=== PATIENT | male | born 1995 | race American Indian/Alaskan Native ===

== ENCOUNTER 2016-08-17 09:41 | Emergency (ER) | payer OTHER ==
[2016-08-17 10:14] LABS: Basophils % (Auto) 0.9 % (0.0-1.8); Eosinophils % (Auto) 2.5 % (0.0-4.3); Hematocrit 42.4 % (35.5-45.6); Hemoglobin 13.9 gm/dl (11.8-15.2); Mean Corpuscular HGB Conc 33 % (32-34); Mean Corpuscular Hemoglobin 33 pg (28-32); Mean Corpuscular Volume 99 fl (84-94); Platelet Count 295 K/mm3 (140-440); Red Blood Count 4.27 M/mm3 (3.65-5.03); Red Cell Distribution Width 13.2 % (13.2-15.2); White Blood Count 7.6 K/mm3 (4.5-11.0)
[2016-08-17 10:32] LABS: Anion Gap 15 mmol/L; BUN/Creatinine Ratio 11.81; Blood Urea Nitrogen 13 mg/dL (9-20); Calcium 9.5 mg/dL (8.4-10.2); Carbon Dioxide 28 mmol/L (22-30); Chloride 103.3 mmol/L (98-107); Glucose 94 mg/dL (75-100); Potassium 4.1 mmol/L (3.6-5.0); Sodium 142 mmol/L (137-145)
[2016-08-17 12:01] LABS: Urine Drugs of Abuse Note Disclamer
[2016-08-17 12:25] LABS: Bilirubin,Urine NEG (Negative); Blood,Urine NEG (Negative); Ketones,Urine TR mg/dL (Negative); Leukocyte Esterase,Urine NEG (Negative); Mucus,Urine FEW /HPF; Nitrite,Urine NEG (Negative)
--- NOTE | 2016-08-18 02:06 | Emergency Department Report ---
ED Psych HPI - General Chief Complaint: Psych Stated Complaint: MH Time Seen by Provider: 08/18/16 02:00 Source: patient, EMS (ems notes not available at time of chart dictation), RN notes reviewed Mode of arrival: Ambulatory - History of Present Illness Initial Comments: This is a 21-year-old male. He is previously unknown to me. Has a past medical history of bipolar disorder, schizophrenia, cocaine abuse. The patient is brought to the hospital for psychiatric evaluation. The patient indicates "it's 50-50 that IM going to hurt someone." The patient cannot describe exacerbating or relieving factors. The patient denies headache, neck pain, chest pain, abdominal pain, shortness of breath. He requests to eat. MD Complaint: other -: unknown Associated Psychiatric Symptoms: homicidal ideation History of same: Yes Quality: other (as per history of present illness) Worsens With: drug use Context: recent drug abuse (patient is consuming cocaine) Associated Symptoms: denies: confusion, headache, shortness of breath, nausea, vomiting, syncope, insomnia - Related Data Allergies Allergy/AdvReac Type Severity Reaction Status Date / Time No Known Allergies Allergy Unverified 08/17/16 09:57 ED Review of Systems ROS: Stated complaint: MH Other details as noted in HPI Constitutional: denies: fever Eyes: denies: vision change ENT: denies: epistaxis Respiratory: denies: cough Cardiovascular: denies: chest pain Gastrointestinal: denies: abdominal pain Genitourinary: as per HPI. denies: dysuria Musculoskeletal: denies: back pain Skin: denies: lesions Neurological: denies: headache Psychiatric: as per HPI ED Past Medical Hx - Past Medical History Previous Medical History?: Yes Hx Psychiatric Treatment: Yes (bipolar, schizophrenia) - Surgical History Past Surgical History?: No - Social History Smoking Status: Current Every Day Smoker Substance Use Type: Cocaine, Marijuana ED Physical Exam - General Limitations: Other (patient is disorganized. The patient is a poor historian) General appearance: alert, in no apparent distress - Head Head exam: Present: atraumatic, normocephalic - Eye Eye exam: Present: normal appearance, EOMI - ENT ENT exam: Present: normal exam, normal orophraynx, mucous membranes moist - Neck Neck exam: Present: normal inspection, full ROM. Absent: tenderness, meningismus - Respiratory Respiratory exam: Present: normal lung sounds bilaterally. Absent: respiratory distress, wheezes, rales, rhonchi, stridor, chest wall tenderness, accessory muscle use, decreased breath sounds, prolonged expiratory - Cardiovascular Cardiovascular Exam: Present: regular rate, normal rhythm, normal heart sounds. Absent: bradycardia, tachycardia, irregular rhythm, systolic murmur, diastolic murmur, rubs, gallop - GI/Abdominal GI/Abdominal exam: Present: soft, normal bowel sounds. Absent: distended, tenderness, guarding, rebound, rigid, pulsatile mass - Rectal Rectal exam: Present: deferred - Extremities Exam Extremities exam: Present: normal inspection, full ROM, normal capillary refill. Absent: tenderness, pedal edema, joint swelling, calf tenderness - Back Exam Back exam: Present: normal inspection, full ROM. Absent: tenderness, CVA tenderness (R), CVA tenderness (L), muscle spasm, paraspinal tenderness, vertebral tenderness - Neurological Exam Neurological exam: Present: alert, oriented X3, normal gait, other (Extraocular movements intact. Tongue midline. No facial droop. Facial sensation intact to light touch in the V1, V2, V3 distribution bilaterally. 5 and 5 strength in 4 extremities.. Sensation is intact to light touch in 4 extremities.). Absent : motor sensory deficit - Psychiatric Psychiatric exam: Present: flat affect, other (patient disorganized. Making comments about hurting people.) - Skin Skin exam: Present: warm, dry, intact, normal color. Absent: rash ED Course Vital Signs 08/17/16 09:57 Temperature 97.6 F Pulse Rate 67 Respiratory 18 Rate Blood Pressure 114/71 O2 Sat by Pulse 100 Oximetry - Reevaluation(s) Reevaluation #1: 08/18/16 04:14 differential diagnosis: Mood disorder, homicidality, suicidality , cocaine abuse, polysubstance abuse, decompensated psychiatric disease, medical clearance for psychiatric placement Assessment and plan: 21-year-old male who is making passive remarks about hurting people. He is afebrile with reassuring vital signs. His physical exam is unremarkable. He has a GCS of 15, with an NIH score of 0. His laboratory studies are reviewed, and they are unremarkable. The patient is placed on a 1013. At this point in time, I see no immediate medical contraindication to psychiatric admission/evaluation/consultations/placement. The crisis team is informed. ED Medical Decision Making - Lab Data Result diagrams: 08/17/16 10:03 08/17/16 10:03 Vital Signs 08/17/16 09:57 Temperature 97.6 F Pulse Rate 67 Respiratory 18 Rate Blood Pressure 114/71 O2 Sat by Pulse 100 Oximetry Lab Results 08/17/16 08/17/16 08/17/16 Range/Units 10:03 10:03 10:03 WBC 7.6 (4.5-11.0) K/mm3 RBC 4.27 (3.65-5.03) M/mm3 Hgb 13.9 (11.8-15.2) gm/dl Hct 42.4 (35.5-45.6) % MCV 99 H (84-94) fl MCH 33 H (28-32) pg MCHC 33 (32-34) % RDW 13.2 (13.2-15.2) % Plt Count 295 (140-440) K/mm3 Lymph % (Auto) 25.8 (13.4-35.0) % [place] % (Auto) 10.6 H (0.0-7.3) % Eos % (Auto) 2.5 (0.0-4.3) % Baso % (Auto) 0.9 (0.0-1.8) % Lymph # 2.0 (1.2-5.4) K/mm3 [place] # 0.8 (0.0-0.8) K/mm3 Eos # 0.2 (0.0-0.4) K/mm3 Baso # 0.1 (0.0-0.1) K/mm3 Seg Neutrophils % 60.2 (40.0-70.0) % Seg Neutrophils # 4.6 (1.8-7.7) K/mm3 Sodium 142 (137-145) mmol/L Potassium 4.1 (3.6-5.0) mmol/L Chloride 103.3 (98-107) mmol/L Carbon Dioxide 28 (22-30) mmol/L Anion Gap 15 mmol/L BUN 13 (9-20) mg/dL Creatinine 1.1 (0.8-1.5) mg/dL Estimated GFR > 60 ml/min BUN/Creatinine Ratio 11.81 % Glucose 94 (75-100) mg/dL Calcium 9.5 (8.4-10.2) mg/dL Total Creatine Kinase (55-170) units/L Urine Color (Yellow) Urine Turbidity (Clear) Urine pH (5.0-7.0) Ur Specific [place] (1.003-1.030) Urine Protein (Negative) mg/dL Urine Glucose (UA) (Negative) mg/dL Urine Ketones (Negative) mg/dL Urine Blood (Negative) Urine Nitrite (Negative) Urine Bilirubin (Negative) Urine Urobilinogen (<2.0) mg/dL Ur Leukocyte Esterase (Negative) Urine WBC (Auto) (0.0-6.0) /HPF Urine RBC (Auto) (0.0-6.0) /HPF U Epithel Cells (Auto) (0-13.0) /HPF Urine Mucus /HPF Salicylates (2.8-20.0) mg/dL Urine Opiates Screen Urine Methadone Screen Acetaminophen (10.0-30.0) ug/mL Ur Barbiturates Screen Ur Phencyclidine Scrn Ur Amphetamines Screen U Benzodiazepines Scrn Urine Cocaine Screen U Marijuana (THC) Screen Drugs of Abuse Note Plasma/Serum Alcohol < 0.01 (0-0.07) gm% 08/17/16 08/17/16 08/18/16 Range/Units 11:26 11:26 02:06 WBC (4.5-11.0) K/mm3 RBC (3.65-5.03) M/mm3 Hgb (11.8-15.2) gm/dl Hct (35.5-45.6) % MCV (84-94) fl MCH (28-32) pg MCHC (32-34) % RDW (13.2-15.2) % Plt Count (140-440) K/mm3 Lymph % (Auto) (13.4-35.0) % [place] % (Auto) (0.0-7.3) % Eos % (Auto) (0.0-4.3) % Baso % (Auto) (0.0-1.8) % Lymph # (1.2-5.4) K/mm3 [place] # (0.0-0.8) K/mm3 Eos # (0.0-0.4) K/mm3 Baso # (0.0-0.1) K/mm3 Seg Neutrophils % (40.0-70.0) % Seg Neutrophils # (1.8-7.7) K/mm3 Sodium (137-145) mmol/L Potassium (3.6-5.0) mmol/L Chloride (98-107) mmol/L Carbon Dioxide (22-30) mmol/L Anion Gap mmol/L BUN (9-20) mg/dL Creatinine (0.8-1.5) mg/dL Estimated GFR ml/min BUN/Creatinine Ratio % Glucose (75-100) mg/dL Calcium (8.4-10.2) mg/dL Total Creatine Kinase 320 H (55-170) units/L Urine Color Yellow (Yellow) Urine Turbidity Clear (Clear) Urine pH 6.0 (5.0-7.0) Ur Specific [place] 1.030 (1.003-1.030) Urine Protein 30 mg/dl (Negative) mg/dL Urine Glucose (UA) Neg (Negative) mg/dL Urine Ketones Tr (Negative) mg/dL Urine Blood Neg (Negative) Urine Nitrite Neg (Negative) Urine Bilirubin Neg (Negative) Urine Urobilinogen 4.0 (<2.0) mg/dL Ur Leukocyte Esterase Neg (Negative) Urine WBC (Auto) 1.0 (0.0-6.0) /HPF Urine RBC (Auto) 5.0 (0.0-6.0) /HPF U Epithel Cells (Auto) 1.0 (0-13.0) /HPF Urine Mucus Few /HPF Salicylates (2.8-20.0) mg/dL Urine Opiates Screen Presumptive negative Urine Methadone Screen Presumptive negative Acetaminophen (10.0-30.0) ug/mL Ur Barbiturates Screen Presumptive negative Ur Phencyclidine Scrn Presumptive negative Ur Amphetamines Screen Presumptive positive U Benzodiazepines Scrn Presumptive negative Urine Cocaine Screen Presumptive positive U Marijuana (THC) Screen Presumptive positive Drugs of Abuse Note Disclamer Plasma/Serum Alcohol (0-0.07) gm% 08/18/16 08/18/16 Range/Units 02:06 02:06 WBC (4.5-11.0) K/mm3 RBC (3.65-5.03) M/mm3 Hgb (11.8-15.2) gm/dl Hct (35.5-45.6) % MCV (84-94) fl MCH (28-32) pg MCHC (32-34) % RDW (13.2-15.2) % Plt Count (140-440) K/mm3 Lymph % (Auto) (13.4-35.0) % [place] % (Auto) (0.0-7.3) % Eos % (Auto) (0.0-4.3) % Baso % (Auto) (0.0-1.8) % Lymph # (1.2-5.4) K/mm3 [place] # (0.0-0.8) K/mm3 Eos # (0.0-0.4) K/mm3 Baso # (0.0-0.1) K/mm3 Seg Neutrophils % (40.0-70.0) % Seg Neutrophils # (1.8-7.7) K/mm3 Sodium (137-145) mmol/L Potassium (3.6-5.0) mmol/L Chloride (98-107) mmol/L Carbon Dioxide (22-30) mmol/L Anion Gap mmol/L BUN (9-20) mg/dL Creatinine (0.8-1.5) mg/dL Estimated GFR ml/min BUN/Creatinine Ratio % Glucose (75-100) mg/dL Calcium (8.4-10.2) mg/dL Total Creatine Kinase (55-170) units/L Urine Color (Yellow) Urine Turbidity (Clear) Urine pH (5.0-7.0) Ur Specific [place] (1.003-1.030) Urine Protein (Negative) mg/dL Urine Glucose (UA) (Negative) mg/dL Urine Ketones (Negative) mg/dL Urine Blood (Negative) Urine Nitrite (Negative) Urine Bilirubin (Negative) Urine Urobilinogen (<2.0) mg/dL Ur Leukocyte Esterase (Negative) Urine WBC (Auto) (0.0-6.0) /HPF Urine RBC (Auto) (0.0-6.0) /HPF U Epithel Cells (Auto) (0-13.0) /HPF Urine Mucus /HPF Salicylates < 0.3 L (2.8-20.0) mg/dL Urine Opiates Screen Urine Methadone Screen Acetaminophen < 15.0 (10.0-30.0) ug/mL Ur Barbiturates Screen Ur Phencyclidine Scrn Ur Amphetamines Screen U Benzodiazepines Scrn Urine Cocaine Screen U Marijuana (THC) Screen Drugs of Abuse Note Plasma/Serum Alcohol (0-0.07) gm% Critical care attestation.: If time is entered above; I have spent that time in minutes in the direct care of this critically ill patient, excluding procedure time. ED Disposition Clinical Impression: Mood disorder Disposition: DC/TX PSY HOSP/PSY UNIT Is pt being admited?: No Does the pt Need Aspirin: No Condition: Stable Referrals: PRIMARY CARE, [Primary Care Provider] - 3-5 Days
[2016-08-18] MEDS ORDERED: ATIVAN IM PRN (02:11)
--- NOTE | 2016-08-18 14:54 | Consultation ---
History of Present Illness - Reason for Consult Consult date: 08/18/16 Reason for consult: Mental Health Evaluation Requesting physician: MYKEL DORADO - Chief Complaint Chief complaint: "I am in need of help" - History of Present Psychiatric Illness This is a 21-year-old male with past psy history of bipolar disorder, schizophrenia, and cocaine abuse. Today patient is calm and cooperative during the assessment. He stated that he is suicidal and homicidal. He stated that he would use a knife or a gun to kill himself. Also, he stated that he would hurt a person that's a friend of his sister. Patient was elusive about his HI's and this particular friend. He stated all his "anger" come from not living the life he want. He admit to being sad, hopeless, and helpless. He stated that he have no reason to want to live. Patient admitted to self medicated with alcohol and recreational drugs. He stated that he been to multiple inpatient psy settings in the past. He stated that he last took Celexa, Vyvanse, and Risperdal months ago. He stated that he experience voices intermittently, but can't make out what they be telling him. He stated that his sleep has been erratic lately, but his appetite is "okay." He stated that he have not slept in 2 days (drug binge) . Patient stated that he would like to go back to school and get his GED. Medications and Allergies Allergies Allergy/AdvReac Type Severity Reaction Status Date / Time No Known Allergies Allergy Unverified 08/17/16 09:57 Active Meds: Active Medications Lorazepam (Ativan) 2 mg IM Q4HR PRN PRN Reason: Agitation Mental Status Exam - Vital signs Last Vital Signs Temp 97.5 F L 08/18/16 08:00 Pulse 64 08/18/16 08:00 Resp 18 08/18/16 08:01 BP 106/61 08/18/16 08:00 Pulse Ox 99 08/18/16 08:01 - Exam Narrative exam: ROS: (+) depression, (+) psychosis MSE: Appearance: calm, cooperative Behavior: poor eye contact Speech: regular rate and tone Mood: "depressed" Affect: congruent to mood Thought Process: circumstantial Thought Content: denies SI/HI's and VH's Motor Activity: lying in bed Cognition: a/ox 3 Insight: limited Judgment: limited Results Result Diagrams: 08/17/16 10:03 08/17/16 10:03 Abnormal lab results 08/18/16 08/18/16 Range/Units 02:06 02:06 Total Creatine Kinase 320 H (55-170) units/L Salicylates < 0.3 L (2.8-20.0) mg/dL All other labs normal. Assessment and Plan Assessment and plan: Impression: MDD severe type with psychotic features, Cocaine/Cannabis Use DO. This is a 21-year-old male with past psy history of bipolar disorder, schizophrenia, and cocaine abuse. Today patient is calm and cooperative during the assessment. He stated that he is suicidal and homicidal. He stated that he would use a knife or a gun to kill him self. Also, he stated that he would hurt a person that's a friend of his sister. Patient was elusive about his HI's about this particular friend. He stated all his "anger" come from not living the life he want. He denies VH's. Patient is homeless. DD: R/O Bipolar, Schizoaffective DO, Substance induced psychosis Recommendation/Plan: Continue 1013 with placement to inpatient psy services. Start Risperdal 1 mg PO HS for psychotic symptoms, Cogentin 0.5 mg PO HS for EPS prevention, and Celexa 10 mg PO for depression. Discussed possible metabolic side effects of Risperdal and suicidality/medication induced christine reference Celexa and Benadryl 25 mg PO HS PRN for sleep.
[2016-08-18] MEDS ORDERED: BENADRYL PO PRN (16:48)
[2016-08-18] MEDS: celeXA PO SCH (18:18)
[2016-08-18] MEDS: COGENTIN PO SCH (21:55)
[2016-08-18] MEDS: RisperDAL PO SCH (21:55)
[2016-08-19] MEDS: celeXA PO SCH (10:14)
--- NOTE | 2016-08-19 17:34 | Progress Note ---
Subjective - Reason for Consult Consult date: 08/19/16 Reason for consult: psychiatric follow up - Chief Complaint Chief complaint: "I'm down and depressed" This is a 21-year-old male with past psy history of bipolar disorder, schizophrenia, and cocaine abuse. Today patient is calm and cooperative during the assessment. He stated that he is suicidal without a plan. Yesterday he stated that he would use a knife or a gun to kill himself. Yesterday, per the record, he stated that he would hurt a person that's a friend of his sister. He admits to being sad, hopeless, and helpless. Patient reports using alcohol and recreational drugs. He has been sleeping most of his time since arrival to the ER. Appetite is decreased. Mental Status Exam - Vital signs Last Vital Signs Temp 97.7 F 08/19/16 07:38 Pulse 85 08/19/16 07:38 Resp 16 08/19/16 09:55 BP 127/89 08/19/16 07:38 Pulse Ox 100 08/19/16 07:38 - Exam Narrative exam: ROS: (+) depression, (+) psychosis MSE: Appearance: calm, cooperative Behavior: poor eye contact Speech: regular rate and tone Mood: "depressed" Affect: congruent to mood Thought Process: circumstantial Thought Content: reports SI, no plan. no current HI. no AVH Motor Activity: lying in bed Cognition: a/ox 3 Insight: limited Judgment: limited Assessment and Plan Impression: MDD severe type with psychotic features Cocaine/Cannabis Use DO. DD: R/O Bipolar, Schizoaffective DO, Substance induced psychosis Recommendation/Plan: Continue 1013 with placement to inpatient psy services. Continue Risperdal 1 mg PO HS for psychotic symptoms Cogentin 0.5 mg PO HS for EPS prevention Celexa 10 mg PO for depression. Benadryl 25 mg PO HS PRN for sleep.
[2016-08-19] MEDS: COGENTIN PO SCH (22:33)
[2016-08-19] MEDS: RisperDAL PO SCH (22:33)
--- NOTE | 2016-08-20 10:58 | Progress Note ---
Subjective - Reason for Consult Consult date: 08/20/16 Reason for consult: Psychiatry Follow-up - Chief Complaint Chief complaint: "I am okay today" This is a 21-year-old male with past psy history of bipolar disorder, schizophrenia, and cocaine abuse. Today patient is calm and cooperative during the assessment. He stated that he is not suicidal today, but now he want to harm his sister's boyfriend. He could not tell why he want to harm this person. He stated that he spoke with his dad yesterday and he felt better after the conversation. He denies SI's, AVH's, sleep disturbance, and a poor appetite. He stated that his appetite was decreased yesterday. Mental Status Exam - Vital signs Last Vital Signs Temp 97.9 F 08/19/16 20:00 Pulse 67 08/19/16 20:00 Resp 18 08/19/16 20:00 BP 114/65 08/19/16 20:00 Pulse Ox 100 08/19/16 20:00 - Exam Narrative exam: MSE: Appearance: calm, cooperative Behavior: good eye contact Speech: regular rate and tone Mood: "okay" Affect: congruent to mood Thought Process: circumstantial Thought Content: denies SI's and AVH's Motor Activity: lying in bed Cognition: a/ox 3 Insight: limited Judgment: limited Assessment and Plan Impression: MDD severe type with psychotic features, Cocaine/Cannabis Use DO. He denies VH's. This is a 21-year-old male with past psy history of bipolar disorder, schizophrenia, and cocaine abuse. Today patient is calm and cooperative during the assessment. He stated that he is not suicidal today, but now he want to harm his sister boyfriend. He could not tell why he want to harm this person. He stated that he spoke with his dad yesterday and he felt better. He denies SI's, AVH's, sleep disturbance, and a poor appetite. Patient is homeless. Recommendation/Plan: Continue 1013 with placement to inpatient psy services. Start Risperdal 1 mg PO HS for psychotic symptoms, Cogentin 0.5 mg PO HS for EPS prevention, and Celexa 10 mg PO for depression. Discussed possible metabolic side effects of Risperdal and suicidality/medication induced christine reference Celexa and Benadryl 25 mg PO HS PRN for sleep.
[2016-08-20] MEDS: celeXA PO SCH (11:20)
[2016-08-20] MEDS: COGENTIN PO SCH (22:24)
[2016-08-20] MEDS: RisperDAL PO SCH (22:24)
[2016-08-21] MEDS: celeXA PO SCH (12:07)
--- NOTE | 2016-08-21 13:25 | Progress Note ---
Subjective - Reason for Consult Consult date: 08/21/16 Reason for consult: Psychiatry Follow-up - Chief Complaint Chief complaint: "I want to get better" This is a 21-year-old male with past psy history of bipolar disorder, schizophrenia, and cocaine abuse. Today patient is calm and cooperative during the assessment. He stated that he no longer want to hurt/kill anyone. He stated that he was angry about his current situation (homeless and recreational drug use) when making the past homicidal threats. He stated that he has no reason to live because his life is all "messed up." He felt like he should be living a better life at this time. He continue to state that he is suicidal without plan. He denies HI's, AVH's, sleep disturbance, and a poor appetite. Mental Status Exam - Vital signs Last Vital Signs Temp 98 F 08/21/16 12:09 Pulse 56 L 08/21/16 12:09 Resp 18 08/21/16 12:09 BP 124/80 08/21/16 12:09 Pulse Ox 96 08/21/16 12:09 - Exam Narrative exam: MSE: Appearance: calm, cooperative Behavior: good eye contact Speech: regular rate and tone Mood: "I feel down" Affect: congruent to mood Thought Process: linear Thought Content: denies HI's and AVH's Motor Activity: lying in bed Cognition: a/ox 3 Insight: limited Judgment: limited Assessment and Plan Impression: MDD severe type, Cocaine/Cannabis Use DO. This is a 21-year-old male with past psy history of bipolar disorder, schizophrenia, and cocaine abuse. Today patient is calm and cooperative during the assessment. He stated that he no longer want to hurt/kill anyone. He stated that he was angry about his current situation (homeless and recreational drug use) when making the past homicidal threats. He stated that he has no reason to live because his life is all "messed up." Patient is homeless. Psychosis (AH's) had resolved possibly induced by substance use (cocaine/marijuana) Recommendation/Plan: Continue 1013 with placement to inpatient psy services. Modify Celexa to 20 mg PO for depression. Discussed sucidality/medication induced christine reference Celexa. Continue Benadryl 25 mg PO HS PRN for sleep.
[2016-08-22] MEDS ORDERED: celeXA PO SCH (10:00)
--- NOTE | 2016-08-22 11:05 | Progress Note ---
Subjective - Reason for Consult Consult date: 08/22/16 Reason for consult: SI, rescind 1013 Mental Status Exam - Vital signs Last Vital Signs Temp 98.1 F 08/21/16 22:00 Pulse 81 08/21/16 22:00 Resp 16 08/21/16 22:00 BP 130/84 08/21/16 22:00 Pulse Ox 99 08/21/16 22:00 Assessment and Plan I. This screening and assessment is based on information collected from the following sources: II. SUICIDE RISK SCREENING (within last 30 days): A.) Suicidal thoughts/behaviors: Self report of desire to harm himself with a knife or gun. No intention or clear plan noted by the patient. Patient noted he was having acute psychosocial stressors and was having these thoughts. Thoughts were ego- dystonic and nature. SUICIDE RISK ASSESSMENT III. FACTORS THAT INCREASE RISK: A.) Demographic and Substance Use Factors: Recent substance abuse and intoxication B.) Current/Recent Factors (within past 3 months): Psychosocial/Environmental Factors: Homelessness Physical Illness: None Cognitive/Psychological Factors: None C.) Historical Factors: Previous psychosocial stressors exacerbating his mood symptoms with comorbid substance abuse. D.) Diagnostic/Symptom/Treatment Factors: Currently poor access to mental health care due to lack of insurance E.) Acute Risk Factor Severity (DESC; MILD/MOD/SEVERE) Other factors for this individual that increase risk: IV. FACTORS THAT DECREASE RISK: Resilience/Protective Factors: Intermittent psychosocial supports Other factors for this individual that decrease risk: No previous attempt history noted V. Clinician's Formulation of Risk and Determination of level of Care: This is a 21-year-old male who is having both chronic and acute stressors which have brought him to the ER. Just prior to the ER presentation patient was intoxicated and verbalized desire to harm himself. Since being in the ER patient has consistently denied the desire to harm himself. He has been in the ER for over 5 days and has not shown any gestures and consistently denied desire to harm himself. Furthermore, patient has been placed on several medications to address his underlying mood disorder. Additionally, patient is no longer acutely intoxicated and has been abstinent from substances throughout the duration of his hospital stay. Consequently, it is the opinion of the treatment team that the patient is at low risk at the current time given the above interventions that were implemented in his care. Estimation of Imminent Risk: Low due to the above explanation Determination of Level of Care based on Suicide Risk: Outpatient follow-up and the [facility] as the patient has had inpatient level of care in the ER for 5 days with reinitiation of medications to address his underlying depression. Furthermore, patient has had consistently denied the desire to harm himself. Additionally, those thoughts were ego-dystonic and nature to begin with the patient had no intent or clear plan to execute on those thoughts. Narrative description of clinical reasoning. (This must be completed on all patients): . Plan and Interventions based on Suicide Risk: This patient will likely be stepped down to an outpatient mental health center in the community upon discharge and follow-up within 7 days of his discharge from the ER. VII. Discharge/After Hours Support Plan: Patient can return back to the ER, call 911 or crisis line if symptoms of depression, anxiety, suicidality return. General Appearance: casually dressed, no acute distress Sensorium/Consciousness: alert and responding to external stimuli; clear Orientation: person, place, time and situation Eye Contact: Fair Attitude / Behavior: Fair Psychomotor & Musculoskeletal Activity: WNL Mood: ok Affect: constricted, limited range Speech / Language: fluent, with normal rate/rhythm/tone Thought Processes: organized, logical, linear Thought Content: no SI, no HI Perception: no AVH Insight: Fair Judgement: Fair Capacity for ADLs: independent Plan: 1. Rescind 1013 2. Set up with outpatient mental health services
[2016-08-22 17:15] VITALS: BP 111/49
--- NOTE | 2016-08-22 18:50 | Emergency Department Report ---
Blank Doc - Documentation Documentation: 1013 will be rescinded as per recommendation of psychiatry. Prescription will be given for current meds.
== END 2016-08-22 19:10 ==
LOC: EEVIPCON 09:41 → ED 09:41
DX: F39 Unspecified mood [affective] disorder (principal); F12.10 Cannabis abuse, uncomplicated; F14.10 Cocaine abuse, uncomplicated; F17.200 Nicotine dependence, unspecified, uncomplicated; F31.9 Bipolar disorder, unspecified; F20.9 Schizophrenia, unspecified
CPT/HCPCS: 36415; 80048; 80307; 81001; 82550; 85025; 99284; G0480; 80320

== ENCOUNTER 2017-01-01 23:20 | Emergency (ER) | payer SELFPAY ==
[2017-01-02 00:33] LABS: Basophils % (Auto) 0.8 % (0.0-1.8); Eosinophils % (Auto) 0.4 % (0.0-4.3); Hematocrit 45.3 % (35.5-45.6); Hemoglobin 14.9 gm/dl (11.8-15.2); Mean Corpuscular HGB Conc 33 % (32-34); Mean Corpuscular Hemoglobin 33 pg (28-32); Mean Corpuscular Volume 100 fl (84-94); Platelet Count 267 K/mm3 (140-440); Red Blood Count 4.52 M/mm3 (3.65-5.03); Red Cell Distribution Width 13.9 % (13.2-15.2); White Blood Count 9.1 K/mm3 (4.5-11.0)
[2017-01-02 00:38] LABS: Anion Gap 21 mmol/L; BUN/Creatinine Ratio 11; Blood Urea Nitrogen 12 mg/dL (9-20); Calcium 9.6 mg/dL (8.4-10.2); Carbon Dioxide 24 mmol/L (22-30); Chloride 98.8 mmol/L (98-107); Glucose 97 mg/dL (75-100); Potassium 3.9 mmol/L (3.6-5.0); Sodium 140 mmol/L (137-145)
[2017-01-02 00:39] LABS: Urine Drugs of Abuse Note Disclamer
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
[2017-01-02 00:56] LABS: Bilirubin,Urine NEG (Negative); Blood,Urine NEG (Negative); Ketones,Urine NEG (Negative); Leukocyte Esterase,Urine NEG (Negative); Nitrite,Urine NEG (Negative); Protein,Urine <15 mg/dL mg/dL (Negative); Urobilinogen,Urine < 2.0 mg/dL (<2.0); WBC,Urine < 1.0 /HPF (0.0-6.0)
[2017-01-02] MEDS ORDERED: celeXA PO SCH (10:00)
--- NOTE | 2017-01-02 14:06 | Consultation ---
History of Present Illness - Reason for Consult Reason for consult: passive SI Medications and Allergies Allergies Allergy/AdvReac Type Severity Reaction Status Date / Time No Known Allergies Allergy Unverified 08/17/16 09:57 Home Medications Medication Instructions Recorded Confirmed Last Taken Type Citalopram [Celexa] 20 mg PO DAILY #30 tablet 08/22/16 01/01/17 Unknown Rx diphenhydrAMINE [Benadryl CAP] 25 mg PO HS PRN #30 capsule 08/22/16 01/01/17 Unknown Rx Active Meds: Active Medications Citalopram Hydrobromide (Celexa) 20 mg PO DAILY [facility] Last Admin: 01/02/17 11:08 Dose: 20 mg Diphenhydramine HCl (Benadryl) 25 mg PO HS PRN PRN Reason: Sleep Mental Status Exam - Vital signs Last Vital Signs Temp 98.9 F 01/01/17 23:51 Pulse 98 H 01/01/17 23:51 Resp 18 01/01/17 23:51 BP 114/73 01/01/17 23:51 Pulse Ox 99 01/01/17 23:51 Results Result Diagrams: 01/01/17 23:56 01/01/17 23:56 Abnormal lab results 01/01/17 01/01/17 Range/Units 23:50 23:56 MCV 100 H (84-94) fl MCH 33 H (28-32) pg [place] % (Auto) 7.8 H (0.0-7.3) % Seg Neutrophils % 77.5 H (40.0-70.0) % Ur Specific [place] 1.002 L (1.003-1.030) All other labs normal. Assessment and Plan Assessment and plan: CHIEF COMPLAINT IN PATIENTS WORDS: HISTORY OF PRESENT ILLNESS: This is a 21-year-old male with a reported past psychiatric history of MDD who now presents secondary to recent expression of suicidal thoughts in the context of acute psychosocial stressors. Patientthat he has had depression ongoing for a period of time. Last episode was several months ago. He appears to be nonadherent to his outpatient treatment and home medications. Patient is on clear about which medications he supposed be on. PSYCHIATRIC REVIEW OF SYSTEMS: Substance: UDS + Amphetamines/Cannabis Detoxification/Withdrawal: none noted Depression: Withdrawn, isolated, low moods Liane: irritable, not hyperverbal, no flight of ideas Psychosis: no AVH, no thought disorder noted, no paranoia/grandiosity/erotomania Anxiety/ OCD/ PTSD: denies somatic symptoms, flashbacks, nightmares, avoidance, panic attacks Suicidality: passive SI Other Self-Injurious Behavior: none currently, no recent SIB noted Violent/ Aggressive Behavior: none noted CURRENT MEDICATIONS: none ALLERGIES: NKDA PAST PSYCHIATRIC HISTORY: Inpatient: denies Outpatient: has no psychiatrist/therapist Prior Suicide Attempts: Prior SI but no SA noted Prior Self-Injurious Behaviors: denies PAST PSYCHIATRIC MEDICATION TRIALS: MEDICAL HISTORY: denies MENTAL STATUS EXAM: General Appearance: Dressed in hospital gown, no acute distress Sensorium/Consciousness: alert and responding to external stimuli Eye Contact: limited Attitude / Behavior: cooperative, but guarded Psychomotor & Musculoskeletal Activity: WNL Mood: fine Affect: constricted Speech / Language: normal Thought Processes: organized, logical, linear, goal directed Thought Content: passive SI, no HI Perception: no AVH Orientation: person, place, time, situation Judgment What would you do if you smelled smoke in a crowded movie theater?: poor/impulsive Insight: poor Intelligence Vocabulary, general fund of knowledge, educational level: Average Capacity of ADLs: Independent STRENGTHS: PSYCHOSOCIAL AND ENVIRONMENTAL STRESSORS: ASSESSMENT: MDD PLAN OF CARE: start remeron 15 mg po qhs Continue to observe and contact collateral sources Reassess and complete suicide risk assessment as the patient is no longer reporting SI
[2017-01-02] MEDS: REMERON PO SCH (21:46)
--- NOTE | 2017-01-03 19:38 | Progress Note ---
Subjective - Reason for Consult Consult date: 01/03/17 Reason for consult: psychiatric follow up Mental Status Exam - Vital signs Last Vital Signs Temp 97.9 F 01/03/17 07:46 Pulse 68 01/03/17 07:46 Resp 16 01/03/17 07:47 BP 119/60 01/03/17 07:46 Pulse Ox 100 01/03/17 07:47 Assessment and Plan "I'm not going to hurt myself." This is a 21-year-old male with a reported past psychiatric history of MDD who now presents secondary to recent expression of suicidal thoughts in the context of acute psychosocial stressors. He states he no longer wants to harm himself. He denies psychotic symptoms. He states he had time to think. He reports he is homeless and has no problem going back to the street. He states he knows how to take care of himself. He is interested in learning about outpatient resources for mental health care and child welfare social worker. MENTAL STATUS EXAM: General Appearance: Dressed in hospital gown, no acute distress Sensorium/Consciousness: alert Eye Contact: good Attitude / Behavior: cooperative Psychomotor & Musculoskeletal Activity: WNL Mood: "good" Affect: constricted Speech / Language: normal Thought Processes: organized, logical, linear, goal directed Thought Content: no SI, no HI Perception: no AVH Orientation: person, place, time, situation Judgment: poor/impulsive Insight: poor Intelligence : Average Capacity of ADLs: Independent ASSESSMENT: MDD PLAN OF CARE: Continue remeron 15 mg po qhs Continue to observe and contact collateral sources Follow up in 24 hours to determine suicidal risk.
[2017-01-03] MEDS: BENADRYL PO PRN (21:43)
[2017-01-03] MEDS: REMERON PO SCH (21:43)
--- NOTE | 2017-01-04 11:06 | Progress Note ---
Subjective - Reason for Consult Consult date: 01/04/17 Reason for consult: Psychiatry Follow-up - Chief Complaint Chief complaint: This is a 21-year-old male with a reported past psychiatric history of MDD who now presents secondary to recent expression of suicidal thoughts in the context of acute psychosocial stressors. Today patient is calm and cooperative, but withdrawn during the assessment. He stated being homeless and using recreational drugs exacerbate his depression. He stated that he slept 4 hours last night. He rate his depression 5/10, with 10 being the worse. He denies SI/ HI's and AVH's. He denies any side effects of his medications. Mental Status Exam - Vital signs Last Vital Signs Temp 98.2 F 01/04/17 08:14 Pulse 78 01/04/17 08:14 Resp 20 01/04/17 08:14 BP 101/57 01/04/17 08:14 Pulse Ox 97 01/04/17 08:14 - Exam Narrative exam: MSE: Appearance: calm, cooperative Behavior: regular eye contact Speech: regular rate and tone Mood: "I don't know" withdrawn Affect: flat Thought Process: circumstantial Thought Content: denies SI/HI's and AVH's Motor Activity: ambulatory Cognition: A/O x3 Insight: fair Judgment: fair Assessment and Plan Impression: MDD. Substance Use DO (marijuana/amphetamines). Substance Induced Mood DO. Today patient is calm and cooperative, but withdrawn during the assessment. Patient is homeless. Recommendation/Plan: Evaluate 1013 in 24 hours to determine proper dispo. Continue Remeron 15 mg PO HS for depression. Continue to observe and contact collateral sources. Discussed possible suicidality/medication induced christine reference Remeron with patient. Casing Material Weigher involvement, patient is homeless.
[2017-01-04] MEDS: BENADRYL PO PRN (20:56)
[2017-01-04] MEDS: REMERON PO SCH (22:03)
[2017-01-05 09:42] VITALS: BP 125/69
--- NOTE | 2017-01-05 10:31 | Progress Note ---
Subjective - Reason for Consult Consult date: 01/05/17 Reason for consult: Psychiatry Follow-up - Chief Complaint Chief complaint: 'I feel better" This is a 21-year-old male with a reported past psychiatric history of MDD who now presents secondary to recent expression of suicidal thoughts in the context of acute psychosocial stressors. Today patient is calm and cooperative during the assessment. He stated that he would like to be discharged. He stated that he plan to attend rehab services for his recreational drug use. He denies SI/HI' s and AVH's. He rate his depression 0/10, with 10 being the worse. He denies sleep disturbance and a poor appetite. He denies any side effects of his medications. Mental Status Exam - Vital signs Last Vital Signs Temp 98.1 F 01/05/17 09:41 Pulse 60 01/05/17 09:41 Resp 18 01/05/17 09:42 BP 125/69 01/05/17 09:41 Pulse Ox 100 01/05/17 09:42 - Exam Narrative exam: MSE: Appearance: calm, cooperative Behavior: regular eye contact Speech: regular rate and tone Mood: "pretty good" Affect: congruent to mood Thought Process: intact Thought Content: denies SI/HI's and AVH's Motor Activity: ambulatory Cognition: A/O x3 Insight: fair Judgment: fair Assessment and Plan Impression: MDD. Substance Use DO (marijuana/amphetamines). Substance Induced Mood DO. Today patient is calm and cooperative during the assessment. Patient is homeless. Recommendation/Plan: Rescind 1013. Continue Remeron 15 mg PO HS for depression. Discussed possible suicidality/medication induced christine reference Remeron with patient. Patient given outpatient psy/rehab services for [facility]. Stencil Sprayer involvement, patient is homeless.
== END 2017-01-05 20:54 | disposition home or self-care (01) ==
LOC: EEVIPCON 23:20 → ED 23:20
DX: F31.9 Bipolar disorder, unspecified (principal); F15.10 Other stimulant abuse, uncomplicated; F12.10 Cannabis abuse, uncomplicated
CPT/HCPCS: 36415; 80048; 80307; 81001; 84439; 84443; 85025; 99285; G0480; 80320

== ENCOUNTER 2020-01-05 10:57 | Emergency (ER) | payer OTHER ==
[2020-01-05 12:10] VITALS: BP 122/35
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
== END 2020-01-05 13:07 | disposition home or self-care (01) ==
LOC: ED 10:57
DX: M79.10 Myalgia, unspecified site (principal); F17.200 Nicotine dependence, unspecified, uncomplicated; F12.10 Cannabis abuse, uncomplicated; Z79.899 Other long term (current) drug therapy; V49.59XA Passenger injured in collision with other motor vehicles in traffic accident, initial encounter; Y93.89 Activity, other specified; Y92.488 Other paved roadways as the place of occurrence of the external cause; Y99.8 Other external cause status
CPT/HCPCS: 99281